=== PATIENT | male | born 1945 | race Caucasian/White ===

== ENCOUNTER 2018-09-21 14:58 | Outpatient (CLI) | payer OTHER, SELFPAY ==
--- NOTE | 2018-09-21 14:07 | DI.RAD_ITS ---
SYMPTOM/DIAGNOSIS: SHOOTING PAIN LT ARM, STIFFNESS OF NECK, TORTICOLLIS, M43.6 CERVICAL SPINE: There is moderate narrowing and small endplate osteophyte formation at C 3-4. More prominent endplate osteophytes and disc space narrowing is seen from C 4-5 through C 6-7. Facet degenerative changes are present, greatest at C 3-4 and C 7-T 1. There is left neural foraminal narrowing at C 5-6 and right neural foraminal narrowing at C 5-6 and C 6-7. IMPRESSION: Degenerative disc changes causing bilateral neural foraminal narrowing.
== END 2018-09-21 15:18 ==
PROVIDERS: PCP Family Medicine; Visit Provider Internal Medicine
DX: M79.602 Pain in left arm (principal); M43.6 Torticollis; M50.31 Other cervical disc degeneration, high cervical region; M50.321 Other cervical disc degeneration at C4-C5 level; M50.322 Other cervical disc degeneration at C5-C6 level
CPT/HCPCS: 72050

== ENCOUNTER 2019-02-01 08:48 | Outpatient (CLI) | payer OTHER, SELFPAY ==
[2019-02-01 10:22] LABS: Anion Gap 8.6 mmol/L (3-11); BUN 17 mg/dL (7-18); CO2 29.4 mmol/L (21.0-32.0); CREATININE 0.95 mg/dL (0.70-1.30); Calcium 8.8 mg/dL (8.5-10.1); Chloride 102 mmol/L (98-107); Glucose 107 mg/dL (70-100); Potassium 3.9 mmol/L (3.5-5.1); Sodium 140 mmol/L (136-145)
== END 2019-02-01 09:08 ==
PROVIDERS: PCP Family Medicine; Visit Provider Family Medicine
DX: I10 Essential (primary) hypertension (principal)
CPT/HCPCS: 36415; 80048

== ENCOUNTER → 2019-05-23 09:06 | Outpatient (BNVA) | payer OTHER, SELFPAY | PROVIDERS: PCP Family Medicine; Referring Provider Family Medicine; Visit Provider Orthopaedic Surgery | DX: M25.561 Pain in right knee (principal); M25.562 Pain in left knee; M70.41 Prepatellar bursitis, right knee; M70.42 Prepatellar bursitis, left knee; J44.9 Chronic obstructive pulmonary disease, unspecified; I10 Essential (primary) hypertension | CPT/HCPCS: 99202; 99213 ==

== ENCOUNTER 2019-07-15 08:46 | Observation (INO) | payer OTHER, SELFPAY ==
[2019-07-15] VITALS (38 sets, daily range): BP systolic 120–158; BP diastolic 66–114; PULSE 55–178; RESP 10–20; TEMP 36.3–37.3; O2SAT 95–99
[2019-07-15] MEDS: Normal Saline 1,000 ML 125 ML IV (09:00)
[2019-07-15] MEDS: Normal Saline Flush 10 ML SYR IVP ×2 (09:00→15:05)
[2019-07-15 09:42] LABS: Lactate 1.3 mmol/L (0.6-1.4)
[2019-07-15 09:44] LABS: Abs Immature Grans 0.05 k/cumm (0.0-0.09); Absolute Basophil Count 0.05 k/cumm (0.0-0.2); Absolute Eosinophil Count 0.19 k/cumm (0.0-0.7); Absolute Lymphocyte Count 2.14 k/cumm (1.2-3.4); Absolute Monocyte Count 0.48 k/cumm (0.11-0.7); Absolute Neutrophil Count 3.11 k/cumm (1.2-6.7); Basophils % 0.8; Eosinophils % 3.2; HCT 43.7 % (40.0-50.0); HGB 15.3 g/dL (13.5-17.5); Immature Grans % 0.8; Lymphocytes % 35.5; Mean Corpuscular Hemoglobin 30.8 pg (27.0-33.0); Mean Corpuscular Volume 87.9 fL (80-95); Mean Platelet Volume 9.3 fL (8.0-11.0); Neutrophils % 51.7; Platelet Count 252 x1000/uL (130-400); RBC 4.97 m/cumm (4.50-6.00); RBC Distribution Width 13.4 % (11.8-14.1); White Blood Cell Count 6.02 k/cumm (4.4-10.8)
--- NOTE | 2019-07-15 09:51 | DI.RAD_ITS ---
EXAM: XR CHEST 2V PA AND LATERAL INDICATION: chest pain. COMPARISON: No exams were available for comparison TECHNIQUE: 2D digital imaging was performed. FINDINGS: Emphysematous changes in the lungs. There is no infiltrate. There is no pleural effusion. The cardiov ascular structures are intact. There is evidence of old right rib fractures. IMPRESSION: No evidence of acute cardiopulmonary disease.
[2019-07-15 10:09] LABS: ALT 22 U/L (16-63); AST 17 U/L (15-37); Albumin 3.6 g/dL (3.4-5.0); Alkaline Phosphatase 60 U/L (46-116); Anion Gap 8.5 mmol/L (3-11); BUN 13 mg/dL (7-18); Bilirubin, Total 0.6 mg/dL (0.2-1.0); CO2 26.5 mmol/L (21.0-32.0); CREATININE 0.94 mg/dL (0.70-1.30); Calcium 8.8 mg/dL (8.5-10.1); Chloride 106 mmol/L (98-107); Glucose 112 mg/dL (70-100); Lipase 254 U/L (73-393); Magnesium 1.9 mg/dL (1.8-2.4); NT-proBNP 46 pg/mL; Potassium 3.8 mmol/L (3.5-5.1); Sodium 141 mmol/L (136-145); TSH 1.34 uIU/mL (0.36-3.74); Total Protein 7.4 g/dL (6.4-8.2)
[2019-07-15 10:27] LABS: Troponin I < 0.05 ng/mL (0.00-0.06)
--- NOTE | 2019-07-15 11:30 | W.ED.GENAD ---
Discharge Plan Disposition Patient Disposition: [facility] INPATIENT Condition: Good Discharge Details Chief Complaint: Palpitatns Clinical Impression: Nonsustained supraventricular tachycardia Admit Date/Time: 07/15/19 11:26 Admit Provider: Alma Latif Attending Provider: Alma Latif Primary Care Provider: Jose Alejandro Seay ED Provider: Lucille Reagan Discharge Data Discharge Date/Time-TO BE ENTERED AT DEPARTURE: 07/15/19 12:25 Medical Decision Making Is a very pleasant 73-year-old man who presents to the ER for palpitations, fast heart rate, dizziness, chest and mid back pain associated and diaphoresis. Patient reports episode began 45 minutes prior to arrival when doing some light work at his house. Patient does report a few episodes of similar type symptoms but less severe not lasting as long occurring at home for which he never has been evaluated or seek treatment. Patient reports chest pain approximately 4 out of 10 with mild radiation to his back. Mild nausea present without vomiting. Patient denies any fever, chills. Patient reports he does have several cups of coffee daily but no changes routine recently. No new medications. Patient reports takes blood pressure medication daily but has no other medical problems. Denies cardiac history. Patient's initial monitor shows SVT at a rate of 178. After a vagal maneuver when sitting forward his rate broke to 82 symptoms fairly immediately improved. Sensation of tachycardia fully resolved. Chest pain quickly improved to 2 out of 10. Patient reports diaphoresis began to resolve. Patient's initial EKG was done after his episode of tachycardia. Several re-evaluations of patient he continues to feel improved, feeling well at this time requesting a meal as he is developed an appetite. Patient's vital signs remained stable at this time. Labs ultimately resulted in normal, white blood cell count normal, nothing to indicate an infection. Initial troponin is normal, TSH normal patient has a normal BNP. Spoke with hospitalist whom will accept patient for admission for cardiac evaluation given he has had no formal cardiac evaluation past. Patient agrees to admission and continues to feel well in the emergency room. HPI General Date/Time Provider Initiated Documentation: 07/15/19 08:48. HPI Narrative: Very pleasant 73-year-old man presents to the emergency room this morning for complaints of palpitations. Patient reports palpitations associated with dizziness, shortness of breath and diaphoresis. Patient reports anterior chest pain with radiation to his back between his shoulder blades occurring in conjunction with palpitations. Patient feels his heart is racing. Reports similar episodes in the past but he is never seen a doctor or suck treatment for such episodes. Patient reports last episode in May. Resolved on its own. Patient denies obvious cardiac history. Patient takes metoprolol by mouth daily for elevated blood pressure. Patient denies any recent ill feeling, upper respiratory symptoms, fever, chills. Eating and drink without difficulty. Patient reports episode occurred while he was at work this morning once he got to the job site he did not feel fit to work and came to the hospital instead. Related Data Home Medications Medication Instructions Recorded Confirmed aspirin [Aspirin Low-Strength] 81 mg PO DAILY tab-cap 12/31/12 07/15/19 glucosam-chond wy-[id number] ac 1 ea PO DAILY 12/31/12 07/15/19 multivitamin [Daily Multi-Vitamin] 1 ea PO DAILY 12/31/12 07/15/19 tamsulosin [Flomax] 0.4 mg PO HS 07/15/19 07/15/19 metoprolol succinate 12.5 mg PO DAILY #15 tab 07/16/19 Previous Rx's Medication Instructions Recorded metoprolol succinate 12.5 mg PO DAILY #15 tab 07/16/19 Allergies Allergy/AdvReac Type Severity Reaction Status Date / Time atorvastatin AdvReac Intermediate FATIGUE Unverified 07/15/19 09:00 General Stated Complaint: Palpitatns SADIE: 2 Review of Systems Review of Systems ROS Unobtainable: All systems reviewed & are unremarkable except as noted in HPI and below Constitutional Constitutional: Denies chills, Reports fatigue, Denies fever(s) and Reports weakness Cardiovascular Cardiovascular: Reports chest pain, Reports diaphoresis, Denies syncope, Reports rapid heart rate, Reports irregular heart rhythm, Denies radiating jaw, neck or arm pain and Reports dyspnea Respiratory Respiratory: Denies cough, Denies pain with cough and Reports dyspnea Gastrointestinal Gastrointestinal: Reports nausea and Denies vomiting Neurologic Neurologic: Denies syncope and Reports weakness Endocrine Endocrine: Reports fatigue [facility] Medical History COPD (chronic obstructive pulmonary disease) Essential hypertension Hearing loss Surgical History Colonoscopy - MAC (08/18/17) Family History Mother , 93 Essential hypertension Heart disease Father , 67 No problems noted. Brother Prostate cancer Grandmother Stroke Sister No problems noted. Daughter No problems noted. Daughter No problems noted. Social History Smoking/Tobacco Use Status: Former Tobacco Use Tobacco: How many years used: 15 Alcohol Intake: former Drug use: Never Substance use type: does not use Household members: spouse Housing: house Communication Needs: Hard of Hearing Pets and animals: Yes Pets and animals: dog(s) Sexually active: No Current gender identity: decline to answer What is your relationship status?: How often do you talk on the phone with friends or family?: decline to answer How often do you get together with friends or relatives?: decline to answer How often do you attend zoroastrianism or buddhist services?: decline to answer Do you belong to any clubs or organized social groups?: decline to answer Panel score (0-1 are the most socially isolated patients): 1 What type of physical activity do you participate in: other Details: Working Duration: decline to answer Frequency: decline to answer Lo/Amish: Baptist Special lo needs: No Seatbelt use: always Helmet use: Yes Helmet use: always Drive intox or ride w/intox pickup driver: No Do you feel safe at home: Yes Do you feel safe in your relationship?: Yes Exam Narrative Exam Narrative: CONST: Diaphoretic appearing, uncomfortable. Alert and alert. HENMT: Head nomocephalic, normal to inspection. Atraumatic. Hearing grossly normal. EYES: General normal appearance. Alignment normal. Eyelids normal. Conjunctiva normal. NECK: Normal visual inspection. FROM. Trachea midline. No Midline tenderness. CHEST: Normal insepection of the chest. RESP: Normal respiratory effort. Speaking full sentences. No cough. No audible wheezing. No retractions. CARDIO: No JVD. Patient presents tachycardic. Within seconds of arrival after vagal broke to a normal rate and rhythm. MUSCULOSKELETAL: Normal Gait. FROM of all extremities. SKIN: Normal. Dry. No rashes. NEURO: Alert and awake. Speech clear. PSYCH: Normal affect. Cooperative. Course Vital Signs Vital signs: Vital Signs Pulse 178 H 07/15/19 08:40 Blood Pressure 143/81 H 07/15/19 08:40 Temperature 37.1 C 07/15/19 08:47 Temperature Source Skin 07/15/19 08:47 Pulse 61 07/15/19 11:18 Pulse Rhythm Regular 07/15/19 11:18 Pulse Strength Normal 07/15/19 11:18 Pulse 72 07/15/19 09:50 Respiratory Rate 16 07/15/19 11:18 Respiratory Effort 07/15/19 11:18 Respiratory Depth Normal 07/15/19 11:18 Respiratory Pattern Normal 07/15/19 10:57 Blood Pressure 145/89 H 07/15/19 11:18 Blood Pressure Mean 107 07/15/19 11:18 Blood Pressure Position Supine 07/15/19 11:18 Pulse Oximetry 96 07/15/19 10:57 Oxygen Delivery Method Room Air 07/15/19 10:57 Oxygen Flow Rate 0 07/15/19 10:57 Pain Level 0 07/15/19 11:18 Lab/Test Results Lab/Test Results: Laboratory Tests Range/Units 07/15/19 07/15/19 07/15/19 09:30 09:30 09:30 WBC (4.4-10.8) k/cumm 6.02 RBC (4.50-6.00) m/cumm 4.97 Hgb (13.5-17.5) g/dL 15.3 Hct (40.0-50.0) % 43.7 MCV (80-95) fL 87.9 MCH (27.0-33.0) pg 30.8 MCHC (32.0-36.0) g/dL 35.0 RDW (11.8-14.1) % 13.4 Plt Count (130-400) x1000/uL 252 MPV (8.0-11.0) fL 9.3 Immature Gran % 0.8 Neutrophils % 51.7 Lymphocytes % 35.5 Monocytes % 8.0 Eosinophils % 3.2 Basophils % 0.8 Absolute Neutrophils (1.2-6.7) k/cumm 3.11 Absolute Lymphocytes (1.2-3.4) k/cumm 2.14 Absolute Monocytes (0.11-0.7) k/cumm 0.48 Absolute Eosinophils (0.0-0.7) k/cumm 0.19 Absolute Basophils (0.0-0.2) k/cumm 0.05 Sodium (136-145) mmol/L 141 Potassium (3.5-5.1) mmol/L 3.8 Chloride (98-107) mmol/L 106 Carbon Dioxide (21.0-32.0) mmol/L 26.5 Anion Gap (3-11) mmol/L 8.5 BUN (7-18) mg/dL 13 Creatinine (0.70-1.30) mg/dL 0.94 Estimated GFR/1.73 m2 (mL/min/1.73m2) >= 60.00 Glucose (70-100) mg/dL 112 H Lactate (0.6-1.4) mmol/L 1.3 Calcium (8.5-10.1) mg/dL 8.8 Magnesium (1.8-2.4) mg/dL 1.9 Total Bilirubin (0.2-1.0) mg/dL 0.6 AST (15-37) U/L 17 ALT (16-63) U/L 22 Alkaline Phosphatase (46-116) U/L 60 Troponin I (0.00-0.06) ng/mL < 0.05 NT-Pro-B Natriuret Pep ( - 299) pg/mL 46 Total Protein (6.4-8.2) g/dL 7.4 Albumin (3.4-5.0) g/dL 3.6 Lipase (73-393) U/L 254 TSH (0.36-3.74) uIU/mL 1.34
--- NOTE | 2019-07-15 11:53 | NUR.NOTE ---
Nursing Note: Lunch offered, refused. Pt states he has his own food
--- NOTE | 2019-07-15 12:20 | DI.US_ITS ---
APPROVED REPORT EXAM: Comprehensive 2D, Doppler, and color-flow Echocardiogram Patient Location: In-Patient Dehydrator Tender: MERI Rendon (AE) Indications: paroxysmal SVT Left Ventricle The left ventricle is normal size. The left ventricular systolic function is normal. The left ventric ular ejection fraction is within the normal range. There is discrete upper septal wall thickening of the ventricular septum. There is no evidence of outflow tract obstruction There is normal LV segmenta l wall motion. The left ventricular diastolic function is normal. LVEF is 60-65%. Right Ventricle Right ventricle is borderline dilated. Right ventricle is mildly hypokinetic. Atria Left atrium is mildly dilated. Right atrium is mildly dilated. Aortic Valve Aortic valve is calcified. Aortic valve is thickened but has adequate excursion. Aortic valve is tril eaflet. There is no aortic valvular stenosis. Mild aortic regurgitation. Mitral Valve The mitral valve is mildly thickened. No evidence of mitral valve stenosis. There is mild to moderate mitral regurgitation which is anteriorly directed. Tricuspid Valve The tricuspid valve is normal in structure. TR V-max =2.8 m/s TR peak gradient =31.1 mmHg RVSP is wit hin normal range Pulmonic Valve The pulmonary valve is normal in structure. Mild pulmonic regurgitation. Great Vessels The aortic root is normal in size. mildly dilated. narrower towards IVC entrance. collapses >50% Pericardium There is no pericardial effusion. 2D Dimensions IVSd 1.1 cm M: 0.6-1.2 LA Volume Index A4C 47.0 mL/m2 PWd 1.1 cm M: 0.6 - 1.2 LA Area A4C 26.0 cm2 LVDd 5.3 cm M: 4.2 - 5.9 LVDs 3.5 cm M: 2.5 - 4.0 Aortic Root 3.4 cm M: 3.1 - 3.7 RA Area A4C 22.6 cm2 LVOT 2.2 cm (M/F) 1.5-2.5 Ascending Aorta 3.3 cm M: 2.6 - 3.4 LVEF (Saldaña's) 57.4 % M: 52 - 72 FS 34.0 % LV Diastology E Decel Time 194.0 (160-240 msec) E/A Ratio 1.3 MED E' 0.1 (<0.07 m/s) LV E/e MED 11.4 (>14) LAT E' 0.1 (<0.1 m/s) LV E/e LAT 7.1 (>14) Aortic Valve LVOT Peak Darryl. 1.0 m/s LVOT Peak Gr. 4.2 mmHg MITCHELL Vmax Index 0.8 cm2/m2 LVOT Mean Gr. 2.7 mmHg LVOT VTI 0.2 m AI PHT 409.4 msec AO VTI 0.5 (0.18-0.25 m) MITCHELL (VTI) 1.9 (2.5-4.5 cm2) MITCHELL (VTI) Index 1.0 cm/m2 Mitral Valve MV A Velocity 0.6 (0.4-1.3 m/s) E/A Ratio 1.3 MV Decel. Time 194.3 (160-240 msec) MV PHT 56.3 msec MVA PHT 3.9 cm2 Pulmonary Valve OR End VMAX 115.7 cm/s Tricuspid Valve TR P. Velocity 2.8 m/s TR P. Gradient 31.1 mmHg Conclusion Left Ventricle : The left ventricle is normal size. The left ventricular systolic function is normal. The left ventricular ejection fraction is within the normal range. There is discrete upper septal wa ll thickening of the ventricular septum. There is no evidence of outflow tract obstruction The left v entricular diastolic function is normal. There is normal LV segmental wall motion. Right Ventricle : Right ventricle is borderline dilated. Right ventricle is mildly hypokinetic. Atria : Left atrium is mildly dilated. Right atrium is mildly dilated. Aortic Valve : Aortic valve is calcified. Aortic valve is thickened but has adequate excursion. Aorti c valve is trileaflet. There is no aortic valvular stenosis. Mild aortic regurgitation. Mitral Valve : The mitral valve is mildly thickened. There is mild to moderate mitral regurgitation w hich is anteriorly directed. No evidence of mitral valve stenosis. Tricuspid Valve : The tricuspid valve is normal in structure. TR V-max =2.8 m/s TR peak gradient =31 .1 mmHg Pulmonic Valve : The pulmonary valve is normal in structure. Great Vessels : The aortic root is normal in size. Pericardium : There is no pericardial effusion. Pulmonic Valve : Mild pulmonic regurgitation. Great Vessels : mildly dilated. narrower towards IVC entrance. collapses >50% Summary: There is no structural abnormality to explain patient's arrhythmia.
--- NOTE | 2019-07-15 14:11 | W.PM.HP.N ---
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 After approx. 10 min feeling went away. On his way to job site started feeling lightheaded, dizzy, weak, LOMBARDO and not well. Presented to [facility] ED and found to be in SVT. Valsalva Maneuver performed and patient converted to NSR. Endorses 3 other similar episodes throughout the year but has never been seen by anyone for sx. Admitted to m/s teley with Echo-results pending. monitoring of electrolytes (normal in ED). Cardiology will see if patient goes into SVT again, however at this time recommends echo, monitoring and outpatient follow up. Asymptomatic at this time with NSR in 70's. (2) Essential hypertension: Start date: 07/15/19 Start time: 14:36 Status: Chronic Assessment and plan: Slightly elevated continue home dose of losartan/HCTZ (3) Chronic obstructive lung disease: Start date: 07/15/19 Start time: 14:36 Status: Chronic Assessment and plan: Not exacerbated at this time. Continue to monitor. (4) DVT prophylaxis: Start date: 07/15/19 Start time: 14:36 Status: Acute Assessment and plan: Subcu lovenox daily The above findings have been discussed with Dr. Latif who is in agreement. History of Present Illness History of Present Illness Chief Complaint: Rapid Heart rate, Palpitation Narrative: 73 y.o Male with PMH of HTN, COPD (nonoxygen Dependent), former smoker presents to [facility] ED today with c/o palpitations, LOMBARDO dizziness, lightheadedness and weakness. Upon presentation to ED patient was found to be in SVT. Valsalva maneuver performed and SVT resolved. HR was elevated to 178 on presentation to ED. Patient states this is the 4th occurrence that has happened in the last year, but he has never seeked treatment for symptoms. In the ED labs and imaging were normal. He endorses 2 cups of coffee a day; quit smoking 10 years ago, no drugs and no alcohol. 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 BNP was 46. Echo was obtained results pending. He is being admitted for further cardiac workup as he has never had this. He will be outpatient admission on telemetery. Repeat troponins; monitor electrolytes, monitor heart activity. He denies CP, SOB, N/V/D Review of Systems Review of Systems ROS Unobtainable: All systems reviewed & are unremarkable except as noted in HPI and below PFSH Medical History COPD (chronic obstructive pulmonary disease) Essential hypertension Hearing loss Surgical History Colonoscopy - MAC (08/18/17) Family History Mother , 93 Essential hypertension Heart disease Father , 67 No problems noted. Brother Prostate cancer Grandmother Stroke Sister No problems noted. Daughter No problems noted. Daughter No problems noted. Social History Smoking/Tobacco Use Status: Former Tobacco Use Tobacco: How many years used: 15 Alcohol Intake: former Drug use: Never Substance use type: does not use Household members: spouse Housing: house Communication Needs: Hard of Hearing Pets and animals: Yes Pets and animals: dog(s) Sexually active: No Current gender identity: decline to answer What is your relationship status?: How often do you talk on the phone with friends or family?: decline to answer How often do you get together with friends or relatives?: decline to answer How often do you attend mosque or orthodox services?: decline to answer Do you belong to any clubs or organized social groups?: decline to answer Panel score (0-1 are the most socially isolated patients): 1 What type of physical activity do you participate in: other Details: Working Duration: decline to answer Frequency: decline to answer Lo/Adventist: Shinto Special lo needs: No Seatbelt use: always Helmet use: Yes Helmet use: always Drive intox or ride w/intox 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 Do you feel safe at home: Yes Do you feel safe in your relationship?: Yes Meds Home Medications and Allergies Home Medications Medication Instructions Recorded Confirmed Type aspirin [Aspirin Low-Strength] 81 mg PO DAILY tab-cap 12/31/12 07/15/19 History glucosam-chond ij-usjwrn-rh ac 1 ea PO DAILY 12/31/12 07/15/19 History multivitamin [Daily Multi-Vitamin] 1 ea PO DAILY 12/31/12 07/15/19 History losartan 50 mg-hydrochlorothiazide 1 tab PO DAILY #90 tab-cap 10/17/18 07/15/19 Rx 12.5 mg tablet tamsulosin [Flomax] 0.4 mg PO HS 07/15/19 07/15/19 History Allergies Allergy/AdvReac Type Severity Reaction Status Date / Time atorvastatin AdvReac Intermediate FATIGUE Unverified 07/15/19 09:00 Exam Narrative Exam Narrative: Const: pleasant gentlemen like in bed with NAD HENMT: normocephalic. Eyes: PERRLA NECK: no lymphedema, no JVD Chest: No acute abnormality Resp: equal unlabored, no SOB, able to complete full sentences. Cardio: NSR, regular rate, no murmur. S1S2 GI: soft nontender Back: No pain SKin: intact Neuro: AAOx3 Extrem: no clubbing, edema or cyanosis Psych: Normal mood and affect. Results Labs Result diagrams: 07/16/19 06:48 07/16/19 06:48 Labs: Laboratory Results - last 24 hr 07/15/19 07/15/19 07/15/19 09:30 09:30 09:30 WBC 6.02 RBC 4.97 Hgb 15.3 Hct 43.7 MCV 87.9 MCH 30.8 MCHC 35.0 RDW 13.4 Plt Count 252 MPV 9.3 Immature Gran % 0.8 Neutrophils % 51.7 Lymphocytes % 35.5 Monocytes % 8.0 Eosinophils % 3.2 Basophils % 0.8 Absolute Neutrophils 3.11 Absolute Lymphocytes 2.14 Absolute Monocytes 0.48 Absolute Eosinophils 0.19 Absolute Basophils 0.05 Sodium 141 Potassium 3.8 Chloride 106 Carbon Dioxide 26.5 Anion Gap 8.5 BUN 13 Creatinine 0.94 Estimated GFR/1.73 m2 >= 60.00 Glucose 112 H Lactate 1.3 Calcium 8.8 Magnesium 1.9 Total Bilirubin 0.6 AST 17 ALT 22 Alkaline Phosphatase 60 Troponin I < 0.05 NT-Pro-B Natriuret Pep 46 Total Protein 7.4 Albumin 3.6 Lipase 254 TSH 1.34 07/15/19 Unknown WBC RBC Hgb Hct MCV MCH MCHC RDW Plt Count MPV Immature Gran % Neutrophils % Lymphocytes % Monocytes % Eosinophils % Basophils % Absolute Neutrophils Absolute Lymphocytes Absolute Monocytes Absolute Eosinophils Absolute Basophils Sodium Potassium Chloride Carbon Dioxide Anion Gap BUN Creatinine Estimated GFR/1.73 m2 Glucose Lactate Calcium Magnesium Total Bilirubin AST ALT Alkaline Phosphatase Troponin I Cancelled NT-Pro-B Natriuret Pep Total Protein Albumin Lipase TSH Last Vital Signs Temp 36.3 C L 07/15/19 12:37 Pulse 78 07/15/19 12:37 Resp 20 07/15/19 12:37 BP 140/73 07/15/19 12:37 Pulse Ox 97 07/15/19 12:37
[2019-07-15] MEDS: Enoxaparin 40 MG/0.4 ML SYR SC (15:05)
[2019-07-15 15:06] LABS: Troponin I < 0.05 ng/mL (0.00-0.06)
[2019-07-15] MEDS: Metoprolol 25 MG TAB PO ×2 (16:01→19:51)
[2019-07-15 17:00] LABS: Troponin I < 0.05 ng/mL (0.00-0.06)
[2019-07-15] MEDS: Tamsulosin 0.4 MG CAPCR PO (21:12)
[2019-07-15 22:46] LABS: Troponin I < 0.05 ng/mL (0.00-0.06)
--- NOTE | 2019-07-16 00:25 | NUR.NOTE ---
Nursing Note: Pt received on bed with visitors around. AO x 3, with sense of humor. Denied of pain. No IVFluids on going. Needs attended. Call lights at reach.
[2019-07-16 01:30] VITALS: PULSE 56
[2019-07-16 04:15] VITALS: BP 131/72; PULSE 54; RESP 16; TEMP 36.4; O2SAT 98
[2019-07-16] MEDS: Omeprazole 10 MG CAPCR PO (07:01)
[2019-07-16 07:10] VITALS: BP 135/74; PULSE 57; RESP 20; TEMP 36.6; O2SAT 98
[2019-07-16 07:31] LABS: HCT 42.6 % (40.0-50.0); HGB 14.5 g/dL (13.5-17.5); Mean Corpuscular Hemoglobin 30.3 pg (27.0-33.0); Mean Corpuscular Volume 89.1 fL (80-95); Mean Platelet Volume 9.5 fL (8.0-11.0); Platelet Count 233 x1000/uL (130-400); RBC 4.78 m/cumm (4.50-6.00); RBC Distribution Width 13.5 % (11.8-14.1); White Blood Cell Count 5.32 k/cumm (4.4-10.8)
[2019-07-16 07:39] LABS: Anion Gap 8.8 mmol/L (3-11); BUN 14 mg/dL (7-18); CO2 27.2 mmol/L (21.0-32.0); CREATININE 0.93 mg/dL (0.70-1.30); Calcium 8.6 mg/dL (8.5-10.1); Chloride 107 mmol/L (98-107); Glucose 105 mg/dL (70-100); Magnesium 1.8 mg/dL (1.8-2.4); Potassium 3.9 mmol/L (3.5-5.1); Sodium 143 mmol/L (136-145)
[2019-07-16] MEDS: Metoprolol 25 MG TAB PO (09:47)
[2019-07-16] MEDS: Aspirin 81 MG CHEW PO (09:47)
[2019-07-16] MEDS: Multivitamin TAB 1 TAB PO (09:47)
[2019-07-16 10:01] VITALS: PULSE 55
--- NOTE | 2019-07-16 11:19 | INITIAL_ITS ---
- If Service Date Differs Date of service: 07/16/19 Time of Service: 11:19 Care Management Initial Assess REASON FOR HOSPITALIZATION:: Paroxysmal SVT PAST MEDICAL HISTORY/PAST SURGICAL HISTORY:: Medical History. COPD (chronic obstructive pulmonary disease). Essential hypertension. Hearing loss. Surgical History. Colonoscopy - MAC (08/18/17) PREVIOUS FUNCTIONAL STATUS/SOCIAL/FAMILY SUPPORTS:: Rocky lives in [place] with his , Lisa. They have two adult daughters who live locally. 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 His works doing the books at his business, and one of his daughter also works for him. He is independent at baseline. CURRENT FUNCTIONAL STATUS:: Bernard was lying in bed when CM met with him with his by his side. He was pleasant and engaged in conversation, although he stated that he would like to go home. CM discussed his plan of care, and he reported that he plans to discharge home after meeting with the MD. He stated t hat he will have a heart monitor and will also have follow up appointments with cardiology. He is agreeable to the plan. CM will follow. ADVANCE DIRECTIVES:: None on file. CM provided Bernard and his copies of the [place] AD at their request. Has patient been provided with information about the portal?: Yes Did the patient sign up for the portal?: No (Bernard's will help) CODE STATUS:: Full Code INSURANCE COVERAGE / FINANCIAL ISSUES:: [employer] CURRENT HOME/COMMUNITY SERVICES/EQUIPMENT:: Bernard is independent with no services or medical equipment currently. PRIMARY CARE PHYSICIAN:: Jose Alejandro Seay POTENTIAL DISCHARGE NEEDS:: Evaluations for further needs, follow up appointments PATIENT/FAMILY EDUCATION NEEDS:: Review of community based supports, discharge plan, discussion of self care needs including Ask Me Three ANTICIPATED BARRIERS TO DISCHARGE:: None identified at this time. TRANSPORTATION:: Bernard's , Lisa, will drive him via private vehicle PLAN:: Anticipate Bernard will return home with no additional services when medically cleared. He will have a 30 day event monitor and will follow up with outpatient cardiology. His , Lisa will drive him home via private vehicle when ready.
[2019-07-16 13:33] VITALS: PULSE 62
--- NOTE | 2019-07-16 13:46 | W.PM.DS.N ---
Date of service: 07/16/19 Time of Service: 13:46 DS: Diagnosis Discharge Diagnosis (1) Paroxysmal SVT (supraventricular tachycardia): Status: Acute (2) Essential hypertension: Status: Chronic (3) Chronic obstructive lung disease: Status: Chronic Discharge Plan Disposition Patient Disposition: HOME Condition: Good Discharge Details Chief Complaint: Palpitatns Clinical Impression: Nonsustained supraventricular tachycardia Reason For Visit: PAROXYSMAL SVT Admit Date/Time: 07/15/19 11:26 Admit Provider: Alma Latif Attending Provider: Alma Latif Primary Care Provider: Jose Alejandro Seay ED Provider: Lucille Reagan Hospital Course Hospital Course: Mr Holt is a 73 year old male with PMHx of hypertension, question of COPD, three prior episodes of palpitations, who was observed on [facility] hospitalist service 07/15/19-07/16/19 for a symptomatic episode of SVT which resolved with a Valsalva maneuver in the ED. He did not have any further arrhythmic events on tele. He did not have an acute coronary syndrome. He had a relatively unremarkable echo. He was started on lopressor 25 mg BID, but we feel that this dose may be excessive as at least twice his heart rate did go down to the 40's while awake (asymptomatic). He is being discharged on Toprol XL 12.5 mg PO daily. He is being referred to outpatient cardiology. 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 He will be asked to wear a 30 day event monitor. He is medically stable for discharge at this time. Home Meds and New Rx's Prescriptions: New metoprolol succinate 25 mg Tablet Extended Release 24 Hr 12.5 mg PO DAILY Qty: 15 RF: 0 Continued multivitamin [Daily Multi-Vitamin] 1 EACH tablet 1 ea PO DAILY RF: 0 aspirin [Aspirin Low-Strength] 81 MG tablet,chewable 81 mg PO DAILY RF: 0 glucosam-chond kw-wbrcnu-ht ac 1 EACH capsule 1 ea PO DAILY RF: 0 tamsulosin [Flomax] 0.4 mg capsule 0.4 mg PO HS RF: 0 Discontinued losartan-hydrochlorothiazide [Hyzaar] 50-12.5 mg tablet 1 tab PO DAILY Qty: 90 RF: 3 Discharge Instructions Instructions: Supraventricular Tachycardia (DC) Additional Instructions: Return to the hospital with any dizziness, palpitations, chest pain, shortness of breath. Keep a blood pressure and heart rate log (daily at about the same time) and take this to your PCP and supervisor ski production. 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 Stand Alone Forms: Nursing Discharge Form Referrals: Mina Treviño MD [MD CONSULTING PHYSICIAN] - 08/09/19 10:20 am Jose Alejandro Seay MD [Primary Care Provider] - Activity:: Activity as Tolerated Equipment/Supplies:: No Equipment Needed Diet:: Low Sodium Discharge Orders Other Ambulatory Orders: Cardiac Event Recorder (Outpt) (ONCE) Timeframe: [id number] Facility: [facility] - Location: Respiratory Therapy Ordered By: Alma Latif DS: Summary Status at Discharge Functional status at discharge: independent ambulation Overall status at discharge: patient is back to baseline Mental Status: mental status grossly normal Speech and Movement: speech and movement normal Mood: congruent mood Affect: normal affect Exam Narrative Exam Narrative: General: very pleasant elderly male, A&Ox3, sitting up comfortably in bed HEENT: EOMI, MMM Heart: RRR, no m/r/g Lungs: CTAB GI: abdomen is soft, nontender, nondistended Extremities: no e/c/c BLE's Psych Mental Status: mental status grossly normal Speech and Movement: speech and movement normal Mood: congruent mood Affect: normal affect DS: Data Vitals/I&O Vitals and I&O: Vital Signs Temperature 36.6 C 07/16/19 07:10 Temperature Source Tympanic 07/16/19 07:10 Pulse 55 L 07/16/19 10:01 Pulse Rhythm Regular 07/16/19 07:30 Pulse Strength Normal 07/15/19 11:18 Pulse 72 07/15/19 11:50 Respiratory Rate 20 07/16/19 07:10 Respiratory Effort Non-Labored 07/16/19 07:30 Respiratory Depth Normal 07/16/19 07:30 Respiratory Pattern Normal 07/16/19 07:30 Blood Pressure 135/74 07/16/19 07:10 Blood Pressure Mean 85 07/15/19 11:31 Blood Pressure Position Supine 07/15/19 11:18 Pulse Oximetry 98 07/16/19 07:10 Oxygen Delivery Method Room Air 07/16/19 07:10 Oxygen Flow Rate 0 07/16/19 07:10 Pain Level 0 07/16/19 07:10 Intake & Output 07/15/19 07/16/19 07/16/19 23:59 11:59 23:59 Intake Total 855 / 855 600 / 720 120 / 720 Output Total 300 / 300 Balance 555 / 555 600 / 720 120 / 720 Weight 86.3 kg 87.8 kg Intake: IV 375 / 375 Oral 480 / 480 600 / 720 120 / 720 Output: Urine 300 / 300 Other: Urine Color Yellow Urine Appearance Clear Clear Comment urine not assessed at this time; pt denies GI/ issues at this time Voiding Methods Urinal Toilet Data Completed and Pending Completed studies during hospitalization [Text1]: CXR 07/15/19: No evidence of acute cardiopulmonary disease. Echo 07/15/19: Left Ventricle : The left ventricle is normal size. The left ventricular systolic function is normal. The left ventricular ejection fraction is within the normal range. There is discrete upper septal wall thickening of the ventricular septum. There is no evidence of outflow tract obstruction The left ventricular diastolic function is normal. There is normal LV segmental wall motion. Right Ventricle : Right ventricle is borderline dilated. Right ventricle is mildly hypokinetic. Atria : Left atrium is mildly dilated. Right atrium is mildly dilated. Aortic Valve : Aortic valve is calcified. Aortic valve is thickened but has adequate excursion. Aortic valve is trileaflet. There is no aortic valvular stenosis. Mild aortic regurgitation. Mitral Valve : The mitral valve is mildly thickened. There is mild to moderate mitral regurgitation which is anteriorly directed. No evidence of mitral valve stenosis. Tricuspid Valve : The tricuspid valve is normal in structure. TR V-max =2.8 m/s TR peak gradient =31.1 mmHg Pulmonic Valve : The pulmonary valve is normal in structure. Great Vessels : The aortic root is normal in size. Pericardium : There is no pericardial effusion. Pulmonic Valve : Mild pulmonic regurgitation. Great Vessels : mildly dilated. narrower towards IVC entrance. collapses >50% Summary: There is no structural abnormality to explain patient's arrhythmia. Labs on day of discharge: Labs from last 24 hours 07/16/19 07/16/19 07/15/19 06:48 06:48 16:15 WBC 5.32 RBC 4.78 Hgb 14.5 Hct 42.6 MCV 89.1 MCH 30.3 MCHC 34.0 RDW 13.5 Plt Count 233 MPV 9.5 Sodium 143 Potassium 3.9 Chloride 107 Carbon Dioxide 27.2 Anion Gap 8.8 BUN 14 Creatinine 0.93 Estimated GFR/1.73 m2 >= 60.00 Glucose 105 H Calcium 8.6 Magnesium 1.8 Troponin I < 0.05 07/15/19 07/15/19 14:25 10:15 WBC RBC Hgb Hct MCV MCH MCHC RDW Plt Count MPV Sodium Potassium Chloride Carbon Dioxide Anion Gap BUN Creatinine Estimated GFR/1.73 m2 Glucose Calcium Magnesium Troponin I < 0.05 < 0.05 PFSH Medical History COPD (chronic obstructive pulmonary disease) Essential hypertension Hearing loss Surgical History Colonoscopy - MAC (08/18/17) Family History Mother , 93 Essential hypertension Heart disease Father , 67 No problems noted. Brother Prostate cancer Grandmother Stroke Sister No problems noted. Daughter No problems noted. Daughter No problems noted. Social History Smoking/Tobacco Use Status: Former Tobacco Use Tobacco: How many years used: 15 Alcohol Intake: former Drug use: Never Substance use type: does not use Household members: spouse Housing: house Communication Needs: Hard of Hearing Pets and animals: Yes Pets and animals: dog(s) Sexually active: No Current gender identity: decline to answer What is your relationship status?: How often do you talk on the phone with friends or family?: decline to answer How often do you get together with friends or relatives?: decline to answer How often do you attend buddhist or methodist services?: decline to answer Do you belong to any clubs or organized social groups?: decline to answer Panel score (0-1 are the most socially isolated patients): 1 What type of physical activity do you participate in: other Details: Working Duration: decline to answer Frequency: decline to answer Lo/Baptist: Yazdanism Special lo needs: No Seatbelt use: always Helmet use: Yes Helmet use: always Drive intox or ride w/intox milk tanker driver: No Do you feel safe at home: Yes Do you feel safe in your relationship?: Yes
[2019-07-16 15:03] VITALS: PULSE 59
--- NOTE | 2019-07-16 15:13 | PDOC.CMDIS ---
- If Service Date Differs Date of service: 07/16/19 Time of Service: 15:13 LACE Index Scoring Tool - Questions: Length of Stay (in days): 2 Acuity (Admit via E.D.?): Yes E.D. Visits: 1 - Answers: Total Score: 6 Risk of Readmission: Low Risk Care Management Discharge Reason for Hospitalization: Paroxysmal SVT Discharge Plan: Rocky will return home with no additional services at this time. He will have a 30 day event monitor and will follow up with outpatient cariology, as recommended by MD. His , Lisa will drive him home via private vehicle. Patient/Family Education Needs: Review discharge instructions, discussion of self care needs including Ask Me Three
== END 2019-07-16 15:45 | disposition home or self-care (01) ==
LOC: ER 12:09 → MS 12:34
PROVIDERS: Admitting Provider Internal Medicine; Emergency Provider Physician Assistant; PCP Family Medicine; Visit Provider Internal Medicine
DX: I47.1 Supraventricular tachycardia (principal); I10 Essential (primary) hypertension; J44.9 Chronic obstructive pulmonary disease, unspecified; Z87.891 Personal history of nicotine dependence; Z23 Encounter for immunization
CPT/HCPCS: 36415; 80048; 80053; 83690; 85027; 93005; 93306; 96360; 96361; 99217; 99223; 99285; J1650; 71046; 83605; 83735; 83880; 84443; 84484; 85025; 93010; 99220; G0378

== ENCOUNTER 2019-07-23 11:22 | Outpatient (CLI) | payer OTHER, SELFPAY ==
--- NOTE | 2019-08-20 10:51 | W.CARDEVENT ---
Date of service: 08/20/19 Time of Service: 10:51 Cardiac Event Recorder Cardiac Event Note: This is a 1 month event monitor ordered for the indication of ventricular tachycardia. ?The patient was in normal sinus rhythm for the majority of the recording time. ?There were no episodes of atrial fibrillation. ?There were no episodes of ventricular tachycardia. ?There were 3 triggered events associated with sinus rhythm, sinus arrhythmia and artifact.
== END 2019-07-23 11:42 ==
PROVIDERS: PCP Family Medicine; Visit Provider Family Medicine
DX: I47.2 Ventricular tachycardia (principal)
CPT/HCPCS: 93270

== ENCOUNTER → 2019-08-09 10:00 | Outpatient (BNVA) | payer OTHER, SELFPAY | PROVIDERS: PCP Family Medicine; Referring Provider Family Medicine; Visit Provider Internal Medicine Cardiovascular Disease | DX: I47.1 Supraventricular tachycardia (principal); I10 Essential (primary) hypertension; J44.9 Chronic obstructive pulmonary disease, unspecified; Z87.891 Personal history of nicotine dependence | CPT/HCPCS: 99204; 99215 ==

== ENCOUNTER 2019-08-20 10:51 | Outpatient (CLI) | payer OTHER, SELFPAY | END 2019-08-20 11:11 | PROVIDERS: PCP Family Medicine; Referring Provider Family Medicine; Visit Provider Internal Medicine Cardiovascular Disease | DX: I47.2 Ventricular tachycardia (principal) | CPT/HCPCS: 93228 ==

== ENCOUNTER 2019-10-24 11:16 | Emergency (ER) | payer OTHER, SELFPAY ==
[2019-10-24 11:22] VITALS: BP 167/102; PULSE 67; RESP 18; TEMP 36.6; O2SAT 98
--- NOTE | 2019-10-24 11:32 | ED.GENADUL_ITS ---
Discharge Plan Disposition Patient Disposition: HOME Discharge Details Chief Complaint: Orthopedic Clinical Impression: Left shoulder strain Primary Care Provider: Jose Alejandro Seay ED Provider: Chuck Ashby Home Meds and New Rx's Prescriptions: No Action metoprolol succinate 25 mg tablet extended release 24 hr 12.5 mg PO DAILY Qty: 90 RF: 3 multivitamin [Daily Multi-Vitamin] 1 EACH tablet 1 ea PO DAILY RF: 0 aspirin [Aspirin Low-Strength] 81 MG tablet,chewable 81 mg PO DAILY RF: 0 glucosam-chond op-vahgmz-kz ac 1 EACH capsule 1 ea PO DAILY RF: 0 tamsulosin [Flomax] 0.4 mg capsule 0.4 mg PO HS RF: 0 metoprolol succinate 25 mg Tablet Extended Release 24 Hr 12.5 mg PO DAILY Qty: 15 RF: 0 Discharge Instructions Instructions: Shoulder Sprain (ED) Additional Instructions: Your x-rays do not demonstrate an acute fracture. I suspect that it may be muscular in nature at this time. Start placing ice over the affected limb. You can take Tylenol and/or ibuprofen for pain. Remain in the sling for the next 48 hours. Contact orthopedic surgery should your pain persist. Referrals: Jaylen Razo MD [ [facility] STAFF PHYSICIAN] - 1 week Discharge Data Discharge Date/Time-TO BE ENTERED AT DEPARTURE: 10/24/19 12:21 Medical Decision Making This is a nontoxic-appearing 73-year-old male who presents to the emergency department with left shoulder pain from fall. Physical exam is significant for posterior lateral shoulder tenderness. Able to passively range the shoulder however active range of motion without significant discomfort. His x-rays are negative for acute fracture. Vital signs stable and physical exam demonstrates tenderness without any evidence of neurological deficit. Most likely rotator cuff pathology. Will place in a sling for the next 24 to 48 hours. I have recommended orthopedic follow-up should his pain persist. HPI General Date/Time Provider Initiated Documentation: 10/24/19 11:26 . HPI Narrative: Patient is a 73-year-old male who has a significant history for COPD, essential hypertension and hearing loss who presents to the emergency department with left shoulder injury. Patient states that he slipped on the ice landing on his left shoulder. He had severe pain in the proximal aspect of his left shoulder since. Denies any numbness or tingling. He denies any head injury, LOC or neck pain. He does not take any blood thinning medication. Related Data Home Medications Medication Instructions Recorded Confirmed aspirin [Aspirin Low-Strength] 81 mg PO DAILY tab-cap 12/31/12 10/24/19 glucosam-chond nk-ozblzo-wt ac 1 ea PO DAILY 12/31/12 10/24/19 multivitamin [Daily Multi-Vitamin] 1 ea PO DAILY 12/31/12 10/24/19 tamsulosin [Flomax] 0.4 mg PO HS 07/15/19 10/24/19 metoprolol succinate 12.5 mg PO DAILY #15 tab 07/16/19 10/24/19 metoprolol succinate 25 mg 12.5 mg PO DAILY #90 tab 08/09/19 10/24/19 tablet,extended release 24 hr Previous Rx's Medication Instructions Recorded metoprolol succinate 12.5 mg PO DAILY #15 tab 07/16/19 metoprolol succinate 25 mg 12.5 mg PO DAILY #90 tab 08/09/19 tablet,extended release 24 hr Allergies Allergy/AdvReac Type Severity Reaction Status Date / Time atorvastatin AdvReac Intermediate FATIGUE Unverified 10/24/19 11:26 General Stated Complaint: Orthopedic SADIE: 3 Review of Systems ENT Ears, Nose, Mouth, and Throat: Denies neck pain Cardiovascular Cardiovascular: Denies lightheadedness, Denies palpitations and Denies dyspnea Respiratory Respiratory: Denies pain on inspiration and Denies dyspnea Musculoskeletal Musculoskeletal: Denies back pain, Reports deformity, Denies joint swelling, Reports limited range of motion, Denies neck pain, Denies numbness and Denies tingling Neurologic Neurologic: Denies numbness and Denies tingling Endocrine Endocrine: Denies palpitations Hematologic/Lymphatic Hematologic/Lymphatic: Denies easy bleeding and Denies easy bruising [facility] Medical History COPD (chronic obstructive pulmonary disease) Essential hypertension Hearing loss Surgical History Colonoscopy - MAC (08/18/17) Family History Mother , 93 Essential hypertension Heart disease Father , 67 No problems noted. Brother Prostate cancer Grandmother Stroke Sister No problems noted. Daughter No problems noted. Daughter No problems noted. Social History Smoking/Tobacco Use Status: Former Tobacco Use Quit Date: 10/09/02 Tobacco: How many years used: 15 Alcohol Intake: former Drug use: Never Substance use type: does not use Household members: spouse Housing: house Communication Needs: Hard of Hearing Pets and animals: Yes Pets and animals: dog(s) Sexually active: No Current gender identity: decline to answer What is your relationship status?: How often do you talk on the phone with friends or family?: decline to answer How often do you get together with friends or relatives?: decline to answer How often do you attend sabianist or amish services?: decline to answer Do you belong to any clubs or organized social groups?: decline to answer Panel score (0-1 are the most socially isolated patients): 1 What type of physical activity do you participate in: other Details: Working Duration: decline to answer Frequency: decline to answer Lo/Samaritan: Mosque Special lo needs: No Seatbelt use: always Helmet use: Yes Helmet use: always Drive intox or ride w/intox shuttle bus driver: No Do you feel safe at home: Yes Do you feel safe in your relationship?: Yes Exam Const General: cooperative, healthy appearing and no acute distress Orientation: alert, awake and oriented x3 Neck Neck: normal visual inspection and full ROM Chest Chest: normal inspection of the chest and normal palpation of entire chest wall Resp Effort & Inspection: normal respiratory effort and able to speak in complete sentences Auscultation: clear to auscultation bilaterally Cardio Pulses: brachial pulses present, radial pulses present and ulnar pulses present Back/Spine/Pelvis Cervical Spine: normal cervical lordosis and cervical ROM normal Thoracic/Lumbar Spine: thoracic and lumbar spine normal to inspection Skin Trauma: no lacerations or abrasions Neuro General: tone normal and normal light touch, pain and propioception Extrem Left upper extremity: shoulder/upper arm Details: tenderness Location: of the proximal humerus and of the mid-shaft humerus, axillary nerve sensory function normal, abnormal ROM and deformity Location: of the proximal humerus; no ecchymosis and no crepitus Course Vital Signs Vital signs: Vital Signs Temperature 36.6 C 10/24/19 11:22 Pulse 67 10/24/19 11:22 Respiratory Rate 18 10/24/19 11:22 Blood Pressure 167/102 H 10/24/19 11:22 Pulse Oximetry 98 10/24/19 11:22 Temperature 36.6 C 10/24/19 11:22 Temperature Source Temporal Artery Scan 10/24/19 11:22 Pulse 67 10/24/19 11:22 Respiratory Rate 18 10/24/19 11:22 Respiratory Effort Non-Labored 10/24/19 11:25 Blood Pressure 167/102 H 10/24/19 11:22 Blood Pressure Position Sitting 10/24/19 11:22 Pulse Oximetry 98 10/24/19 11:22 Oxygen Delivery Method Room Air 10/24/19 11:22 Oxygen Flow Rate 0 10/24/19 11:22 Pain Level 10 10/24/19 11:30
[2019-10-24] MEDS: Acetaminophen 500 MG TAB 1000 MG PO (11:35)
--- NOTE | 2019-10-24 11:52 | DI.RAD_ITS ---
EXAM: XR SHOULDER LT COMPLETE 2+V INDICATION: left lateral shoulder pain s/p fall. COMPARISON: No exams were available for comparison TECHNIQUE: 2D digital imaging was performed. FINDINGS: No fracture or dislocation is seen. There is spurring at the undersurface of the acromion and glenoi d. Visualized portions of the left ribs appear intact. IMPRESSION: Degenerative changes. No acute abnormality.
== END 2019-10-24 12:21 | disposition home or self-care (01) ==
PROVIDERS: Emergency Provider Physician Assistant; PCP Family Medicine
DX: S46.912A Strain of unspecified muscle, fascia and tendon at shoulder and upper arm level, left arm, initial encounter (principal); W00.0XXA Fall on same level due to ice and snow, initial encounter; J44.9 Chronic obstructive pulmonary disease, unspecified; I10 Essential (primary) hypertension
CPT/HCPCS: 99283; 73030; L3650

== ENCOUNTER → 2019-10-29 10:02 | Outpatient (BNVA) | payer OTHER, SELFPAY | PROVIDERS: PCP Family Medicine; Referring Provider Family Medicine; Visit Provider Orthopaedic Surgery | DX: S46.112A Strain of muscle, fascia and tendon of long head of biceps, left arm, initial encounter (principal); W00.0XXA Fall on same level due to ice and snow, initial encounter | CPT/HCPCS: 99214 ==

== ENCOUNTER → 2019-11-26 09:42 | Outpatient (BNVA) | payer OTHER, SELFPAY | PROVIDERS: PCP Family Medicine; Referring Provider Family Medicine; Visit Provider Orthopaedic Surgery | DX: S46.119D Strain of muscle, fascia and tendon of long head of biceps, unspecified arm, subsequent encounter (principal); X58.XXXD Exposure to other specified factors, subsequent encounter | CPT/HCPCS: 99213 ==

== ENCOUNTER → 2020-04-28 08:02 | Outpatient (BNVA) | payer OTHER, SELFPAY | PROVIDERS: PCP Family Medicine; Referring Provider Family Medicine; Visit Provider Urology | DX: N40.1 Benign prostatic hyperplasia with lower urinary tract symptoms (principal); R39.89 Other symptoms and signs involving the genitourinary system; R97.20 Elevated prostate specific antigen [PSA] | CPT/HCPCS: 81003; 99204; 99215 ==

== ENCOUNTER 2020-04-28 09:14 | Outpatient (REF) | payer OTHER, SELFPAY ==
[2020-04-29 09:09] LABS: PSA, Diagnostic 4.9 ng/mL (0.0-6.5)
== END 2020-04-28 09:34 ==
LOC: LBN 09:14
PROVIDERS: PCP Family Medicine; Visit Provider Urology
DX: R97.20 Elevated prostate specific antigen [PSA] (principal)
CPT/HCPCS: 84153

== ENCOUNTER → 2020-10-08 10:17 | Outpatient (BNVA) | payer OTHER, SELFPAY | PROVIDERS: PCP Family Medicine; Referring Provider Family Medicine; Visit Provider Student in an Organized Health Care Education/Training Program | DX: M70.22 Olecranon bursitis, left elbow (principal); M75.82 Other shoulder lesions, left shoulder; W00.0XXS Fall on same level due to ice and snow, sequela; J44.9 Chronic obstructive pulmonary disease, unspecified; I10 Essential (primary) hypertension | CPT/HCPCS: 20610; 99214; J1040 ==

== ENCOUNTER 2021-09-08 02:33 | Outpatient (CLI) | payer OTHER, SELFPAY ==
[2021-09-08 07:32] LABS: HCT 43.7 % (40.0-50.0); HGB 14.6 g/dL (13.5-17.5); MCH 29.4 pg (27.0-33.0); MCHC 33.4 % (32.0-36.0); MCV 88.1 fL (80-95); MPV 9.4 fL (8.0-11.0); Platelet Count 234 10^3/uL (130-400); RBC 4.96 10^6/uL (4.36-5.78); RDW 13.3 % (11.8-14.1); RDW-SD 43.3 fL; WBC 6.72 10^3/uL (4.4-10.8)
[2021-09-08 09:32] LABS: ALT 25 U/L (16-63); AST 19 U/L (15-37); Albumin 3.7 g/dL (3.4-5.0); Alkaline Phosphatase 67 U/L (46-116); BUN 14 mg/dL (7-18); Bilirubin, Total 0.5 mg/dL (0.2-1.0); Chloride 103 mmol/L (98-107); Glucose 108 mg/dL (74-106); Potassium 4.1 mmol/L (3.5-5.1); Sodium 142 mmol/L (136-145); Total Protein 6.7 g/dL (6.4-8.2)
== END 2021-09-08 02:34 | disposition home or self-care (01) ==
LOC: LBO 02:33
PROVIDERS: PCP Family Medicine; Visit Provider Family Medicine
DX: I10 Essential (primary) hypertension (principal)
CPT/HCPCS: 36415; 80053; 85027

== ENCOUNTER → 2022-05-20 14:40 | Outpatient (CLI) | payer MEDICARE, SELFPAY ==
--- NOTE | 2022-05-20 11:15 | DI.CT_ITS ---
Exam(s) CT HEAD WO EXAM: CT HEAD WO CLINICAL HISTORY: left head pain, lump in neck hx of ear shunt,r51.9. TECHNIQUE: Imaging Protocol: Axial computed tomography images with coronal and sagittal reformatted images were created and reviewed COMPARISON: CR XR cervical spine comp 4-5V from 09/21/2018 CR XR CHEST 2V PA LATERAL from 07/15/2019 FINDINGS: Ventricles and Extra axial spaces: Normal in size and morphology for the patient's age. Hemorrhage: None. Cerebral parenchyma: Normal. Midline shift: None. Brainstem/Cerebellum: Normal. Calvarium: Normal. Visualized Paranasal sinuses/Mastoids: Ethmoid sinuses show minimal mucosal thickening. There has be en surgery to both mastoid air cells. Metallic densities are noted in the left mastoid region. Ther e is no evidence of opacification. Soft Tissues: Unremarkable. IMPRESSION: Prior bilateral mastoid surgery. No acute intracranial process. RADIATION DOSE DELIVERED: 929.34mGy.cm Total DLP DATA REPOSITORY: All CT scans at this facility are submitted to the National Radiology Data Registry (NRDR) Dose Index Registry (DIR) with the [employer] (ACR). RADIATION OPTIMIZATION: All CT scans at this facility use at least one of these dose optimization te chniques: automated exposure control; mA and/or kV adjustment per patient size (includes targeted exa ms where dose is matched to clinical indication); or iterative reconstruction.
--- NOTE | 2022-05-20 11:15 | DI.CT_ITS ---
Exam(s) CT NECK W EXAM: CT NECK W CLINICAL HISTORY: left head pain, lump in neck hx of ear shunt,r51.9,. TECHNIQUE: Imaging Protocol: Axial computed tomography images with coronal and sagittal reformatted images were created and reviewed CONTRAST MATERIAL: Intravenous: Omnipaque 350 Contrast volume:structured data in ml Contrast route:I V - Oral: no COMPARISON: No exams were available for comparison FINDINGS: Parotids/submandibular/thyroid gland: Normal. Lymphadenopathy: There is scattered lymph nodes seen along the level one to level three all measurin g less than 8 mm in short axis diameter which are physiologic in nature. Carotids: The internal carotid arteries are tortuous and deviated toward the midline in the upper ce rvical region. There is mild atherosclerotic plaque, greater at the right common carotid bulb but no significant stenosis. Sinuses: Minimal ethmoid sinus mucosal thickening. Mastoids: Prior bilateral mastoid surgery. Metallic clips are noted on the left side. There is no e vidence of mastoid fluid or bony destruction. The internal and external auditory canals appear aron r. Soft tissues: The floor the mouth is unremarkable. The epiglottis and vocal cords are within normal limits. Images through both lung apices are unremarkable. IMPRESSION: Prior bilateral mastoid surgery. No evidence of a mass or adenopathy. RADIATION DOSE DELIVERED: 465.99mGy.cm Total DLP DATA REPOSITORY: All CT scans at this facility are submitted to the National Radiology Data Registry (NRDR) Dose Index Registry (DIR) with the [employer] (ACR). RADIATION OPTIMIZATION: All CT scans at this facility use at least one of these dose optimization te chniques: automated exposure control; mA and/or kV adjustment per patient size (includes targeted exa ms where dose is matched to clinical indication); or iterative reconstruction.
[2022-05-20 12:03] LABS: CREATININE 0.9 mg/dL (0.70-1.30)
[2022-05-20] MEDS: Omnipaque 350 MG/ML 100 ML BTL IJ (13:06)
== END ==
PROVIDERS: PCP Family Medicine; Visit Provider Physician Assistant
DX: R51.9 Headache, unspecified (principal); R22.1 Localized swelling, mass and lump, neck; Z98.890 Other specified postprocedural states
CPT/HCPCS: 36415; 70491; 70450; 82565; J3490

== ENCOUNTER 2022-11-30 08:00 | Outpatient (CLI) | payer MEDICARE, SELFPAY ==
[2022-11-30 12:44] LABS: ALT 19 U/L (16-63); AST 14 U/L (15-37); Albumin 3.7 g/dL (3.4-5.0); Alkaline Phosphatase 64 U/L (46-116); Anion Gap 7.1 mmol/L (3-11); BUN 16 mg/dL (7-18); Bilirubin, Total 0.4 mg/dL (0.2-1.0); CO2 30.9 mmol/L (21.0-32.0); Calcium 9.3 mg/dL (8.5-10.1); Calculated LDL 123 mg/dL (<100); Chloride 106 mmol/L (98-107); Cholesterol 210 mg/dL (<200); Estimated GFR 77.04 (mL/min/1.73m2); Glucose 92 mg/dL (74-106); HDL Cholesterol 51 mg/dL (40-60); Potassium 3.5 mmol/L (3.5-5.1); Sodium 144 mmol/L (136-145); Triglyceride 184 mg/dL (<150)
== END 2022-11-30 08:01 | disposition home or self-care (01) ==
LOC: LOS 08:00
PROVIDERS: PCP Family Medicine; Referring Provider Family Medicine; Visit Provider Family Medicine
DX: I10 Essential (primary) hypertension (principal); E78.5 Hyperlipidemia, unspecified
CPT/HCPCS: 36415; 80053; 80061

== ENCOUNTER 2023-05-20 14:53 | Emergency (ER) | payer MEDICARE, SELFPAY ==
[2023-05-20] VITALS (79 sets, daily range): BP systolic 74–132; BP diastolic 29–99; PULSE 63–189; RESP 9–25; TEMP 36.7; O2SAT 92–98
--- NOTE | 2023-05-20 14:45 | RT.EKG_ITS ---
APPROVED REPORT Exam: Resting ECG Reason for Exam: chest pain Patient Location: E HR:180 bpm ECG Measurements Heart Rate 180 AXIS NH 138 P 56 QRSd 104 QRS 81 QT 295 T -37 QTc 512 Conclusion Supraventricular tachycardia...V-rate>(220-age), QRSd<120 Repolarization abnormality, prob rate related...ST dep, T neg, tachycardia
--- NOTE | 2023-05-20 15:00 | DI.RAD_ITS ---
Exam(s) XR CHEST 2V PA LATERAL EXAM: XR CHEST 2V PA LATERAL CLINICAL HISTORY: sob TECHNIQUE: 2D digital imaging was performed. COMPARISON: CR XR CHEST 2V PA LATERAL from 07/15/2019 FINDINGS: HEART: Normal size. Aorta: Not dilated. Mildly tortuous. PULMONARY VASCULATURE: Normal. LUNGS: Scarring right lung base. PLEURAL SPACE: No pleural effusion or pneumothorax. BONE:Old right rib fractures. Degenerative changes in the spine. IMPRESSION: No acute abnormality. DATA REPOSITORY: RADIATION DOSE DELIVERED:
[2023-05-20] MEDS: Metoprolol 5 MG/5 ML VIAL IVP ×2 (15:01→15:05)
[2023-05-20] MEDS: Normal Saline 1,000 ML 1000 ML IV (15:01)
--- NOTE | 2023-05-20 15:15 | RT.EKG_ITS ---
APPROVED REPORT Exam: Resting ECG Reason for Exam: chest pain repeat ekg Patient Location: E HR:63 bpm ECG Measurements Heart Rate 63 AXIS [place] 175 P 37 QRSd 109 QRS 9 QT 419 T 48 QTc 429 Conclusion Sinus rhythm...normal P axis, V-rate 60- 99
[2023-05-20 15:19] LABS: Abs Immature Grans 0.02 10^3/uL (0.0-0.06); Absolute Basophil Count 0.06 10^3/uL (0.0-0.2); Absolute Eosinophil Count 0.19 10^3/uL (0.0-0.7); Absolute Lymphocyte Count 2.88 10^3/uL (1.2-3.4); Absolute Monocyte Count 0.49 10^3/uL (0.1-0.8); Absolute Neutrophil Count 3.86 10^3/uL (1.2-6.7); Basophils % 0.8; Eosinophils % 2.5; HGB 15.8 g/dL (13.5-17.5); Immature Grans % 0.3; Lymphocytes % 38.4; MCH 30.3 pg (27.0-33.0); MCHC 34.3 % (32.0-36.0); MCV 88 fL (80-95); MPV 9.8 fL (8.0-11.0); Monocytes % 6.5; Neutrophils % 51.5; Platelet Count 232 10^3/uL (130-400); RBC 5.22 10^6/uL (4.36-5.78); RDW 13.2 % (11.8-14.1); RDW-SD 43.2 fL
[2023-05-20] MEDS: Metoprolol 25 MG TAB PO (15:25)
[2023-05-20 15:42] LABS: Anion Gap 7.8 mmol/L (3-11); BUN 16 mg/dL (7-18); CO2 29.2 mmol/L (21.0-32.0); CREATININE 1.1 mg/dL (0.70-1.30); Calcium 8.9 mg/dL (8.5-10.1); Chloride 105 mmol/L (98-107); Estimated GFR 68.29 (mL/min/1.73m2); Glucose 155 mg/dL (74-106); Potassium 3.9 mmol/L (3.5-5.1); Sodium 142 mmol/L (136-145); TSH (W/Ref FT4) 1.49 uIU/mL (0.36-3.74)
--- NOTE | 2023-05-20 16:11 | DI.VRAD_ITS ---
PROCEDURE INFORMATION: Exam: XR Chest Exam date and time: 05/20/2023 3:39 PM Age: 77 years old Clinical indication: Shortness of breath; Patient HX: SOB TECHNIQUE: Imaging protocol: Radiologic exam of the chest. Views: 2 views. Total images: 2 COMPARISON: CR XR CHEST 2V PA LATERAL 07/15/2019 9:36 AM FINDINGS: Lungs: Mild right basilar chronic atelectasis or scarring, stable. Lungs appear otherwise clear. No visible consolidation. No pulmonary masses. Pulmonary vascularity is normal. Pleural spaces: No pleural effusion or pneumothorax. Heart/Mediastinum: Heart size is normal. Bones/joints: No acute osseous abnormalities. Old healed right rib fractures, stable. Mild degenerative change of the spine, stable. IMPRESSION: 1. No acute cardiopulmonary disease. 2. Mild right basilar chronic atelectasis or scarring, stable. Dictated and Authenticated by: Bijal Stein MD. Ordering:KATI Garcia MD
== END 2023-05-20 16:32 | disposition home or self-care (01) ==
PROVIDERS: Emergency Provider Emergency Medicine; PCP Family Medicine
DX: R07.9 Chest pain, unspecified (principal)
CPT/HCPCS: 80048; 93005; 71046; 84443; 85025; 93010

== ENCOUNTER 2023-09-27 16:13 | Outpatient (CLI) | payer MEDICARE, SELFPAY ==
[2023-09-28 17:19] LABS: PSA, Screening 5.1 ng/mL (<=6.5)
== END 2023-09-27 16:14 | disposition home or self-care (01) ==
LOC: LBO 16:13
PROVIDERS: PCP Family Medicine; Visit Provider Family Medicine
DX: N40.1 Benign prostatic hyperplasia with lower urinary tract symptoms (principal); Z12.5 Encounter for screening for malignant neoplasm of prostate
CPT/HCPCS: 36415; 84153

== ENCOUNTER 2023-10-10 08:25 | Emergency (ER) | payer MEDICARE, SELFPAY ==
[2023-10-10 08:33] VITALS: BP 150/76; PULSE 82; RESP 18; TEMP 36.8; O2SAT 97
[2023-10-10 08:36] VITALS: BP 150/76; PULSE 82; RESP 18; TEMP 36.8; O2SAT 97
--- NOTE | 2023-10-10 09:09 | W.ED.GENAD ---
HPI General Stated Complaint: RespSymp Mode of arrival: ambulatory. SADIE: 3 Date/Time Provider Initiated Documentation: 10/10/23 08:31. Limitations to Documentation: no limitations. Information obtained by: patient, RN notes reviewed and old records reviewed. HPI Narrative: 77 year old male presents to ED with CC bilateral ear fullness x 1 week, headache cough and sore throat. He speaking in full sentences. Does have a past medical history of high blood pressure, high cholesterol BPH. Does have a history of tobacco use, M?ni?re's disea Related Data Home Medications Medication Instructions Recorded Confirmed ululgvvuot-aicqphschd-cezrueyw-hyalur 1 ea PO DAILY 12/31/12 10/10/23 ac 375 mg-300 mg-175 mg-2 mg cap multivitamin (Daily Multi-Vitamin 1 ea PO DAILY 12/31/12 10/10/23 tablet) rosuvastatin 5 mg tablet 5 mg PO DAILY #90 tabs 05/23/23 10/10/23 metoprolol succinate 25 mg 12.5 mg (1/2 x 25 mg) PO DAILY #90 06/13/23 10/10/23 tablet,extended release 24 hr tabs losartan 50 mg-hydrochlorothiazide 1 tab PO DAILY #90 tab-caps 08/14/23 10/10/23 12.5 mg tablet (Hyzaar) finasteride 5 mg tablet 5 mg PO DAILY #90 tabs 09/13/23 10/10/23 tamsulosin 0.4 mg capsule (Flomax) 0.8 mg (2 x 0.4 mg) PO HS #180 caps 09/13/23 10/10/23 benzonatate 100 mg capsule 100 mg PO TID PRN cough #14 caps 10/10/23 Previous Rx's Medication Instructions Recorded rosuvastatin 5 mg tablet 5 mg PO DAILY #90 tabs 05/23/23 metoprolol succinate 25 mg 12.5 mg (1/2 x 25 mg) PO DAILY #90 06/13/23 tablet,extended release 24 hr tabs losartan 50 mg-hydrochlorothiazide 1 tab PO DAILY #90 tab-caps 08/14/23 12.5 mg tablet (Hyzaar) finasteride 5 mg tablet 5 mg PO DAILY #90 tabs 09/13/23 tamsulosin 0.4 mg capsule (Flomax) 0.8 mg (2 x 0.4 mg) PO HS #180 caps 09/13/23 benzonatate 100 mg capsule 100 mg PO TID PRN cough #14 caps 10/10/23 Allergies Allergy/AdvReac Type Severity Reaction Status Date / Time atorvastatin AdvReac Intermediate FATIGUE Verified 10/10/23 08:35 Review of Systems All systems reviewed & are unremarkable except as noted in HPI and below Constitutional Constitutional: Reports headache(s) ENT Ears, Nose, Mouth, and Throat: Reports as per HPI, Reports otalgia, Reports headache(s) and Reports sore throat Cardiovascular Cardiovascular: Denies chest pain, Denies rapid heart rate and Denies dyspnea Respiratory Respiratory: Denies change in phlegm color, Reports cough, Denies hemoptysis and Denies dyspnea Neurologic Neurologic: Reports headache(s) PFSH All Active Problems (Updated 10/10/23 @ 10:39 by Elin Bunch NP) COVID-19 (Acute) BPH loc w urin obs/LUTS (Acute) Essential hypertension (Chronic 07/25/13) Hearing loss (Chronic) has a hearing aid, does not wear Hyperlipidemia (Chronic) Medical History (Updated 10/10/23 @ 10:39 by Elin Bunch NP) History of tobacco use History of Meniere's disease Tendonitis of left rotator cuff Suspected rotator cuff tear Depo-Medrol injection: 10/08/2020 Rupture long head biceps tendon Raised prostate specific antigen Cervical arthritis Surgical History S/P colonoscopy (~2017) Status post mastoidectomy Family History Mother , 93 Essential hypertension Heart disease Father , 67 No problems noted. Brother Prostate cancer Maternal Grandmother Stroke Sister No problems noted. Daughter No problems noted. Daughter No problems noted. 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 Pets and animals: Yes Pets and animals: dog(s) Sexually active: No Do you think of yourself as: straight/heterosexual Current gender identity: male and decline to answer What is your relationship status?: How often do you talk on the phone with friends or family?: decline to answer How often do you get together with friends or relatives?: decline to answer How often do you attend lutheran or restorationist services?: 4 or more times per year Do you belong to any clubs or organized social groups?: yes Panel score (0-1 are the most socially isolated patients): 3 What type of physical activity do you participate in: none Duration: decline to answer Frequency: decline to answer Lo/Confucianism: Protestant Special lo needs: No Seatbelt use: always 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 Appears stated age. Normal body habitus. Head: Normocephalic, no trauma. Eyes: Pupils PERRL, Red reflex noted, EOM's intact. Eyelids symmetrical without lesions, discharge, or swelling. ENT: Bilateral TM's WNL, External ear normal to inspection, no mastoid TTP, swelling, or erythema, Nasal turbinates slightly boggy, no nasal discharge. Normal dentition, Posterior pharynx erythemic, no exudate. Chest: RRR, Normal S1, S2, distal pulses intact. Resp: Lungs clear to auscultation bilaterally, no wheezes, rales, or rhonchi. Musculoskeletal: Normal gait, 5/5 strength to all four extremities. Skin: No suspicious rashes or lesions. Capillary refill less than 2 sec. Neurologic: Cranial nerves II-XII intact. Alert and oriented x 3. Motor: No deficits noted. Hematologic/Lymphatic: No ecchymosis, no lymphadenopathy. Course Vital Signs Vital signs: Vital Signs Temperature 36.8 C 10/10/23 08:33 Pulse 82 10/10/23 08:33 Respiratory Rate 18 10/10/23 08:33 Blood Pressure 150/76 H 10/10/23 08:33 Pulse Oximetry 97 10/10/23 08:33 Temperature 36.8 C 10/10/23 08:36 Temperature Source Tympanic 10/10/23 08:36 Pulse 82 10/10/23 08:36 Respiratory Rate 18 10/10/23 08:36 Respiratory Effort Normal, Non-Labored 10/10/23 08:42 Respiratory Depth Normal 10/10/23 08:42 Blood Pressure 150/76 H 10/10/23 08:36 Blood Pressure Position Sitting 10/10/23 08:36 Pulse Oximetry 97 10/10/23 08:36 Oxygen Delivery Method Room Air 10/10/23 08:36 Oxygen Flow Rate 0 10/10/23 08:36 Medical Decision Making 77 year old male presents to ED with CC bilateral ear fullness x 1 week, headache cough and sore throat. He speaking in full sentences. Does have a past medical history of high blood pressure, high cholesterol BPH. Does have a history of tobacco use, M?ni?re's disease. On exam posterior oropharynx slightly erythemic, no exudate. Left ear shows effusion no erythema or bulging. Right ear is within normal limits. Lungs are clear to auscultation bilaterally, diminished in the bases. No wheezes rhonchi auscultated. COVID and flu and strep swab ordered. Positive for COVID-19. Patient is remained hemodynamically stable throughout stay. Will give albuterol inhaler, discussed home care, follow-up care and strict return instructions. This text was generated using Gazemet[employer]ation system, please disregard any oddities of phrase or misspellings. Quality:SDOH Health Related Social Needs: No Data to Display Discharge Plan Disposition Patient Disposition: Home Condition: Stable Discharge Details Clinical Impression: COVID-19 Primary Care Provider: Deysi Todd ED Provider: Elin Bunch Home Meds and New Rx's Prescriptions: New benzonatate 100 mg capsule 100 mg PO TID PRN (Reason: cough) Qty: 14 0RF Rx Instructions: Take 1 capsule up to 3 times daily as needed for cough Continued metoprolol succinate 25 mg tablet extended release 24 hr 12.5 mg PO DAILY Qty: 90 3RF tamsulosin [Flomax] 0.4 mg capsule 0.8 mg PO HS Qty: 180 4RF finasteride 5 mg tablet 5 mg PO DAILY Qty: 90 1RF multivitamin [Daily Multi-Vitamin] 1 EACH tablet 1 ea PO DAILY glucosam-chond sr-tedlki-cz ac 1 EACH capsule 1 ea PO DAILY rosuvastatin 5 mg tablet 5 mg PO DAILY Qty: 90 3RF losartan-hydrochlorothiazide [Hyzaar] 50-12.5 mg tablet 1 tab PO DAILY Qty: 90 4RF Discharge Instructions Instructions: COVID-19 and Chronic Health Conditions (ED) Additional Instructions: At this time you have tested positive for COVID. This is a viral illness. Please use the albuterol 1 or 2 puffs every 4-6 hours as directed. You may also use the Tessalon Perles medication for cough as needed. Please take a multivitamin including zinc, vitamin D and vitamin C. Follow up with primary care provider in 5-7 days if needed. Return to ED sooner if any worsening shortness of breath, fever over 100.8, O2 sat less than 90% on room air for at least 15 minutes or concerns. Increase oral fluids. Please take Tylenol or Ibuprofen with food every 4-6 hours as needed for fever, pain and swelling. Referrals: Deysi Todd MD [Primary Care Provider] - 1 week Discharge Data Discharge Date/Time-TO BE ENTERED AT DEPARTURE: 10/10/23 10:57
[2023-10-10] MEDS: Albuterol HFA 8 GM 60 PUFF INH IH (10:52)
== END 2023-10-10 10:57 | disposition home or self-care (01) ==
PROVIDERS: Emergency Provider Registered Nurse Emergency; PCP Family Medicine
DX: U07.1 COVID-19 (principal); I10 Essential (primary) hypertension; E78.5 Hyperlipidemia, unspecified; Z79.899 Other long term (current) drug therapy; Z87.891 Personal history of nicotine dependence
CPT/HCPCS: 87426; 87880; 99283; 87081; 99284

== ENCOUNTER 2024-07-22 07:03 | Emergency (ER) | payer MEDICARE, SELFPAY ==
[2024-07-22 07:10] VITALS: BP 208/113; PULSE 72; RESP 18; TEMP 36.4; O2SAT 96
[2024-07-22 07:17] VITALS: RESP 16
[2024-07-22] MEDS: LORazepam 1 MG TAB PO (07:30)
--- NOTE | 2024-07-22 08:12 | W.ED.GENAD ---
Discharge Plan Disposition Patient Disposition: Home Discharge Details Clinical Impression: Grief reaction, Essential hypertension Primary Care Provider: Deysi Todd ED Provider: Yolanda Brito Home Meds and New Rx's Prescriptions: No Action tamsulosin [Flomax] 0.4 mg capsule 0.8 mg PO HS Qty: 180 4RF multivitamin [Daily Multi-Vitamin] 1 EACH tablet 1 ea PO DAILY glucosam-chond xt-iqyrcd-yi ac 1 EACH capsule 1 ea PO DAILY losartan-hydrochlorothiazide [Hyzaar] 50-12.5 mg tablet 1 tab PO DAILY Qty: 90 4RF finasteride 5 mg tablet 5 mg PO DAILY Qty: 90 1RF rosuvastatin 5 mg tablet 5 mg PO DAILY Qty: 90 3RF metoprolol succinate 25 mg tablet extended release 24 hr 12.5 mg PO DAILY Qty: 90 3RF Discharge Instructions Additional Instructions: please try to take care of yourself during this difficult time make sure to take your medicines, sleep eat and drink water return for re-evaluation of any symptoms you are concerned about HPI General Date/Time Provider Initiated Documentation: 07/22/24 07:23. Limitations to Documentation: no limitations and other (Very sad). Information obtained by: patient and family. HPI Narrative: 78-year-old gentleman with past medical history of hypertension presents for evaluation of elevated blood pressure. Patient was encouraged to come to the emergency department by his daughter because his blood pressure was elevated at home. Patient reports that his is home on hospice and is dying. This has been ongoing for the last week and it has been very upsetting to him. He states that he is not sleeping or eating well. He denies any symptoms of elevated blood pressure like chest pain, shortness of breath headache. He reports that he just took his blood pressure medication this morning on the way to the hospital. He states that he does not want to be here that he wants to go home and that he wants to be with his as she is dying. Related Data Home Medications ?Medication ?Instructions ?Recorded ?Confirmed ethpznvpdh-xtethrkoap-beetxxop-hyalur 1 ea PO DAILY 12/31/12 07/22/24 ac 375 mg-300 mg-175 mg-2 mg cap multivitamin (Daily Multi-Vitamin 1 ea PO DAILY 12/31/12 07/22/24 tablet) losartan 50 mg-hydrochlorothiazide 1 tab PO DAILY #90 tab-caps 08/14/23 07/22/24 12.5 mg tablet (Hyzaar) tamsulosin 0.4 mg capsule (Flomax) 0.8 mg (2 x 0.4 mg) PO HS #180 caps 09/13/23 07/22/24 finasteride 5 mg tablet 5 mg PO DAILY #90 tabs 02/26/24 07/22/24 rosuvastatin 5 mg tablet 5 mg PO DAILY #90 tabs 06/20/24 07/22/24 metoprolol succinate 25 mg 12.5 mg (1/2 x 25 mg) PO DAILY #90 07/01/24 07/22/24 tablet,extended release 24 hr tabs Previous Rx's ?Medication ?Instructions ?Recorded losartan 50 mg-hydrochlorothiazide 1 tab PO DAILY #90 tab-caps 08/14/23 12.5 mg tablet (Hyzaar) tamsulosin 0.4 mg capsule (Flomax) 0.8 mg (2 x 0.4 mg) PO HS #180 caps 09/13/23 finasteride 5 mg tablet 5 mg PO DAILY #90 tabs 02/26/24 rosuvastatin 5 mg tablet 5 mg PO DAILY #90 tabs 06/20/24 metoprolol succinate 25 mg 12.5 mg (1/2 x 25 mg) PO DAILY #90 07/01/24 tablet,extended release 24 hr tabs Allergies Allergy/AdvReac Type Severity Reaction Status Date / Time atorvastatin AdvReac Intermediate FATIGUE Verified 12/12/23 09:05 General Stated Complaint: Anxiety SADIE: 3 Exam Narrative Exam Narrative: Review of Systems: All systems reviewed & are unremarkable except as noted in HPI and below Well-developed, sobbing NCAT RRR, no murmur Unlabored respiratory effort, clear bilaterally Extremities w/o edema no focal neurologic deficits Course Vital Signs Vital signs: Vital Signs Temperature 36.4 C L 07/22/24 07:10 Pulse 72 07/22/24 07:10 Respiratory Rate 18 07/22/24 07:10 Blood Pressure 208/113 H 07/22/24 07:10 Pulse Oximetry 96 07/22/24 07:10 Temperature 36.4 C L 07/22/24 07:10 Temperature Source Temporal Artery Scan 07/22/24 07:10 Pulse 72 07/22/24 07:10 Respiratory Rate 16 07/22/24 07:17 Respiratory Effort Normal, Non-Labored 07/22/24 07:17 Respiratory Depth Normal 07/22/24 07:17 Respiratory Pattern Normal 07/22/24 07:17 Blood Pressure 208/113 H 07/22/24 07:10 Blood Pressure Position Sitting 07/22/24 07:10 Pulse Oximetry 96 07/22/24 07:10 Pain Level 0 07/22/24 07:30 Medical Decision Making Evaluation of elevated blood pressure. Patient is visibly upset and crying. He did take his blood pressure medication just prior to arrival. He is asymptomatic from his high blood pressure. This has been a very rough week for him. It is unclear why his daughter forced him to take his blood pressure at home this morning or to the hospital when he clearly does not want to be here. She is asking if there is anything that will take the edge off of what is going on at home. I will give him a 1 mg dose of oral Ativan. I am recommending an encouraging just basic daily care including taking medicines getting some sleep eating and drinking. This is clearly a very difficult time for the family and the patient is devastated at the loss of his and having to watch her at home. I recommend reevaluation in the emergency department as needed but follow-up after with PCP for reevaluation. Quality:SDOH Health Related Social Needs: No Data to Display PFSH All Active Problems Grief reaction (Chronic) BPH loc w urin obs/LUTS (Acute) Essential hypertension (Chronic 07/25/13) Hearing loss (Chronic) has a hearing aid, does not wear Hyperlipidemia (Chronic) Medical History History of tobacco use History of Meniere's disease Tendonitis of left rotator cuff Suspected rotator cuff tear Depo-Medrol injection: 10/08/2020 Rupture long head biceps tendon Raised prostate specific antigen Cervical arthritis Surgical History S/P colonoscopy (~2017) Status post mastoidectomy Family History Mother , 93 Essential hypertension Heart disease Father , 67 No problems noted. Brother Prostate cancer Maternal Grandmother Stroke Sister No problems noted. Daughter No problems noted. Daughter No problems noted. 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 Pets and animals: Yes Pets and animals: dog(s) Sexually active: No Do you think of yourself as: straight/heterosexual Current gender identity: male and decline to answer What is your relationship status?: How often do you talk on the phone with friends or family?: decline to answer How often do you get together with friends or relatives?: decline to answer How often do you attend temple or zoroastrian services?: 4 or more times per year Do you belong to any clubs or organized social groups?: yes Panel score (0-1 are the most socially isolated patients): 3 What type of physical activity do you participate in: none Duration: decline to answer Frequency: decline to answer Lo/Yarsanism: Scientologist Special lo needs: No Seatbelt use: always 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
== END 2024-07-22 07:32 | disposition home or self-care (01) ==
LOC: ER 07:29
PROVIDERS: Emergency Provider Emergency Medicine; PCP Family Medicine
DX: F41.9 Anxiety disorder, unspecified (principal); F43.20 Adjustment disorder, unspecified; I10 Essential (primary) hypertension; E78.5 Hyperlipidemia, unspecified; Z87.891 Personal history of nicotine dependence
CPT/HCPCS: 99283

== ENCOUNTER 2024-09-18 10:55 | Outpatient (CLI) | payer MEDICARE, SELFPAY ==
[2024-09-18 12:31] LABS: Anion Gap 6.6 mmol/L (3-11); BUN 16 mg/dL (7-18); CO2 30.4 mmol/L (21.0-32.0); Calcium 9.4 mg/dL (8.5-10.1); Chloride 105 mmol/L (98-107); Estimated GFR 76.08 (mL/min/1.73m2); Glucose 106 mg/dL (74-106); Sodium 142 mmol/L (136-145)
[2024-09-18 12:45] LABS: Hemoglobin A1C 5.5 % (<5.7)
== END 2024-09-18 10:56 | disposition home or self-care (01) ==
LOC: LOS 10:55
PROVIDERS: PCP Family Medicine; Referring Provider Family Medicine; Visit Provider Family Medicine
DX: R73.01 Impaired fasting glucose (principal); I10 Essential (primary) hypertension; F43.21 Adjustment disorder with depressed mood; Z00.00 Encounter for general adult medical examination without abnormal findings
CPT/HCPCS: 36415; 80048; 83036

== ENCOUNTER 2025-02-26 08:40 | Outpatient (CLI) | payer MEDICARE, SELFPAY ==
--- NOTE | 2025-02-26 08:30 | DI.RAD_ITS ---
Exam(s) XR SHOULDER RT COMPLETE 2+V EXAM: XR SHOULDER RT COMPLETE 2+V CLINICAL HISTORY: RIGHT SHOULDER PAIN. TECHNIQUE: 2D digital imaging was performed of the right shoulder. Two images were obtained. Grash ey and axillary views were obtained. COMPARISON: No exams were available for comparison FINDINGS: BONES: No acute fracture is present. No bony destructive lesion is seen. Old healed right rib fractur es are present. JOINTS: No dislocation present. The glenohumeral joint is well maintained. Degenerative changes are seen at the acromioclavicular joint. SOFT TISSUE: Normal. IMPRESSION: Mild degenerative changes seen at the acromioclavicular joint. DATA REPOSITORY: RADIATION DOSE DELIVERED:
[2025-06-04 12:37] LABS: Anion Gap 4.3 mmol/L (3-11); BUN 12 mg/dL (7-18); CO2 32.7 mmol/L (21.0-32.0); CREATININE 0.9 mg/dL (0.70-1.30); Calcium 9.2 mg/dL (8.5-10.1); Chloride 102 mmol/L (98-107); Glucose 108 mg/dL (74-106); Potassium 3.9 mmol/L (3.5-5.1); Sodium 139 mmol/L (136-145)
== END 2025-02-26 08:41 | disposition home or self-care (01) ==
LOC: DIORS 08:40
PROVIDERS: PCP Family Medicine; Referring Provider Family Medicine; Visit Provider Student in an Organized Health Care Education/Training Program
DX: M25.511 Pain in right shoulder (principal); M12.811 Other specific arthropathies, not elsewhere classified, right shoulder
CPT/HCPCS: 20610; J1010; 73030

== ENCOUNTER 2025-06-04 07:59 | Outpatient (CLI) | payer MEDICARE, SELFPAY | END 2025-06-04 08:00 | disposition home or self-care (01) | PROVIDERS: PCP Family Medicine; Referring Provider Family Medicine; Visit Provider Family Medicine | DX: I10 Essential (primary) hypertension (principal) | CPT/HCPCS: 36415; 80048 ==